=== PATIENT | female | born 2000 | race Caucasian/White ===

== ENCOUNTER 2021-02-27 10:40 | Outpatient (REF) | payer MEDICAID, SELFPAY ==
--- NOTE | 2021-02-27 | PFT_ITS ---
FLOWS: FEV1 90% of predicted at 2.96 L. FVC 86% of predicted at 3.24 L. FEV1 to FVC ratio of 0.92. Positive bronchodilator response. LUNG VOLUMES: Total lung capacity 101% of predicted at 4.98 L. Residual volume 168% of predicted at 1.90 L. Slow vital capacity 81% of predicted at 3.08 L. Expiratory reserve volume 53% of predicted at 0.81 L. Diffusion capacity is normal. IMPRESSION: No obstructive or restrictive ventilatory defect. Positive bronchodilator response. This test results can be observed in patient with clinical asthma. Clinical correlation is advised. MD OLAF Jalloh/MODL / [id number]
== END 2021-02-27 10:41 | disposition home or self-care (01) ==
LOC: HO.RESP 10:40
PROVIDERS: PCP Family Medicine; Visit Provider Family Medicine
DX: R06.00 Dyspnea, unspecified (principal)
CPT/HCPCS: 94060; 94727; 94729

== ENCOUNTER 2021-11-29 06:45 | Outpatient (REF) | payer MEDICAID, SELFPAY ==
[2021-11-29 08:50] LABS: UPreg QC Valid YES; Urine Pregnancy NEGATIVE (NEGATIVE)
== END 2021-11-29 06:46 | disposition home or self-care (01) ==
LOC: HO.LAB 06:45
PROVIDERS: PCP Family Medicine; Visit Provider Internal Medicine
DX: L70.0 Acne vulgaris (principal)
CPT/HCPCS: 81025

== ENCOUNTER 2021-12-07 14:07 | Outpatient (REF) | payer MEDICAID, SELFPAY ==
[2021-12-07 15:37] LABS: T4 Thyroxine 9.7 ug/dL (4.5-12.0); Thyroid Stimulating Hormone 0.01 uIU/mL (0.32-4.0)
[2021-12-08 17:16] LABS: Triiodothyronine T3 Total 191 ng/dL (86-192)
== END 2021-12-07 14:08 | disposition home or self-care (01) ==
LOC: HO.LAB 14:07
PROVIDERS: PCP Family Medicine; Visit Provider Family Medicine
DX: R79.89 Other specified abnormal findings of blood chemistry (principal)
CPT/HCPCS: 36415; 84436; 84443; 84480

== ENCOUNTER 2022-04-27 13:39 | Outpatient (REF) | payer MEDICAID, SELFPAY ==
[2022-04-27 16:00] LABS: T4 Thyroxine 7.2 ug/dL (4.5-12.0); Thyroid Stimulating Hormone 3.18 uIU/mL (0.32-4.0)
[2022-04-27 17:04] LABS: Alanine Aminotransferase 11 U/L (0-31); Albumin Level 4.4 g/dL (3.5-5.0); Alkaline Phosphatase 76 U/L (39-117); Anion Gap 17 (12-20); Aspartate Amino Transferase 16 U/L (5-31); Bilirubin Total 0.4 mg/dL (0.0-1.0); Blood Urea Nitrogen 13 mg/dL (9-16); Calcium 9.5 mg/dL (8.4-10.2); Carbon Dioxide 21 mmol/L (22-29); Chloride 105 mmol/L (96-108); Estimated Glomerular Filt Rate > 60; Glucose Random 88 mg/dL (60-115); Potassium 4.2 mmol/L (3.3-5.1); Sodium 139 mmol/L (135-145); Total Protein 7.3 g/dL (6.5-8.0)
[2022-04-30 06:48] LABS: Triiodothyronine T3 Total 134 ng/dL (86-192)
== END 2022-04-27 13:40 | disposition home or self-care (01) ==
LOC: HO.LAB 13:39
PROVIDERS: PCP Family Medicine; Visit Provider Family Medicine
DX: R79.89 Other specified abnormal findings of blood chemistry (principal); R74.01 Elevation of levels of liver transaminase levels
CPT/HCPCS: 36415; 80053; 84436; 84443; 84480